=== PATIENT | female | born 1945 | race American Indian/Alaskan Native ===

== ENCOUNTER 2018-11-23 05:53 | Day surgery (SDC) | payer MEDICARE ==
[2018-11-23] MEDS ORDERED: SODIUM CHLORIDE 0.9% 500 ML 500 ML IV SCH (07:00)
[2018-11-23 07:54] LABS: Basophils # (Auto) 0.1 K/mm3 (0.0-0.1); Basophils % (Auto) 0.6 % (0.0-1.8); Eosinophils % (Auto) 0.5 % (0.0-4.3); Hematocrit 43.6 % (30.3-42.9); Hemoglobin 13.7 gm/dl (10.1-14.3); Lymphocytes # (Auto) 1.2 K/mm3 (1.2-5.4); Lymphocytes % (Auto) 12.2 % (13.4-35.0); Mean Corpuscular HGB Conc 31 % (30-34); Mean Corpuscular Volume 84 fl (79-97); Monocytes # (Auto) 0.7 K/mm3 (0.0-0.8); Monocytes % (Auto) 7.3 % (0.0-7.3); Platelet Count 252 K/mm3 (140-440); Red Blood Count 5.17 M/mm3 (3.65-5.03)
[2018-11-23 08:02] LABS: INR 1.04 (0.87-1.13)
[2018-11-23 08:19] LABS: BUN/Creatinine Ratio 25; Blood Urea Nitrogen 25 mg/dL (7-17); Calcium 9.1 mg/dL (8.4-10.2); Hemolysis Index 0
[2018-11-23] MEDS ORDERED: LIDOCAINE (2%) 20 MG/1 ML VIAL 20 ML MDV INFILTRATI ONE ×2 (09:02→09:58)
[2018-11-23] MEDS ORDERED: HEPARIN/NS 5000 UNIT/500ML 1,000 ML IR ONE (09:02)
[2018-11-23] MEDS ORDERED: MIDAZOLAM 2 MG/2 ML INJ ONE (09:25)
[2018-11-23] MEDS ORDERED: fentaNYL 100 MCG/2 ML INJ ONE (09:26)
[2018-11-23] MEDS: NITROGLYCERIN SYRINGE 3 ML ONE ×2 (09:50→09:57)
[2018-11-23] MEDS: HEPARIN 10,000 UNITS/10 ML VIAL ONE ×2 (09:50→09:57)
[2018-11-23] MEDS: VERAPAMIL 5 MG/2 ML INJ ONE ×2 (09:50→09:57)
--- NOTE | 2018-11-23 11:08 | Short Stay Summary ---
Short Stay Documentation Date of service: 11/23/18 - History H&P: obtained from office - Allergies and Medications Current Medications: Allergies Penicillins Allergy (Unverified 11/23/18 05:54) Hives Home Medications Medication Instructions Recorded Confirmed Last Taken Type Carvedilol [Coreg] 6.25 mg PO DAILY 11/23/18 11/23/18 11/22/18 History 1 tab Oxycodone HCl [oxyCODONE] 10 mg PO TID 11/23/18 11/23/18 11/23/18 08:00 History 1 tab Pregabalin 100 mg PO TID 11/23/18 11/23/18 11/23/18 History 1 tab Simvastatin 20 mg PO DAILY 11/23/18 11/23/18 11/23/18 History 1 tab Tiotropium [place] [Spiriva 4 gm INHALATION 11/23/18 11/22/18 History Respimat] 1 puff Active Medications Sodium Chloride (Nacl 0.9% 500 Ml) 500 mls @ 50 mls/hr IV DIRECT MIGUELITO Stop: 11/23/18 16:59 - Physical exam General appearance: no acute distress Integumentary: no rash HEENT: Atraumatic Breasts: deferred Heart: Regular rate Gastrointestinal: normal Female Genitourinary: deferred Rectal Exam: deferred Extremities: no ischemia Neurological: Normal gait - Brief post op/procedure progress note Date of procedure: 11/23/18 Pre-op diagnosis: Shortness of breath Post-op diagnosis: same Procedure: LHC, RHC and LV gram Anesthesia: MAC Findings: See report Surgeon: MIRA HERNANDEZ Estimated blood loss: none Pathology: none Condition: stable - Hospital course Hospital course: Uneventful - Disposition Condition at discharge: Good Disposition: DC-01 TO HOME OR SELFCARE Short Stay Discharge Plan Activity: no restrictions Weight Bearing Status: Weight Bear as Tolerated Diet: low fat, low cholesterol, low salt Special Instructions: restrict fluid intake to (50 ounces daily) Follow up with: ALFONZO JACOBSON MD [Primary Care Provider] - 7 Days
--- NOTE | 2018-11-23 12:11 | Cardiac Catherization Report ---
LEFT AND RIGHT HEART CATH INDICATION: Shortness of breath. ORDERING PHYSICIAN: Dr. Nasim Haider. PROCEDURES PERFORMED: 1. Selective left and right coronary angiography. 2. Left ventriculography. 3. Right heart catheterization with hemodynamic measurement and oxygen saturation run. DESCRIPTION OF PROCEDURE: After obtaining the consent, the patient was draped using sterile technique. A 2% lidocaine was injected into the right wrist. A 5-Cameroonian vascular sheath was inserted into the right radial artery. A 5-Cameroonian JL3.5 catheter was used to selectively engage the left coronary artery. A 5-Cameroonian JR4 catheter was used to selectively engage the right coronary artery. A 5-Cameroonian JR4 catheter was used to hand inject the left ventriculogram. Using ultrasound guidance and micropuncture needle, a 6-Cameroonian vascular sheath was inserted into the right femoral vein and a 6-[place]onian Webster-Noel catheter was used to measure right-sided hemodynamics and perform an oxygen saturation run. No complications occurred during the procedure. Hemostasis was achieved at the end of the procedure using manual pressure. SPECIMEN REMOVED: None. SEDATION ADMINISTERED: None. FINDINGS: HEMODYNAMICS: 1. The mean pulmonary capillary wedge pressure was 23 mmHg. 2. The pulmonary artery systolic pressure was 92 mmHg with a pulmonary artery diastolic pressure of 49 mmHg. 3. The mean pulmonary artery pressure was 66 mmHg. The transpulmonary gradient was calculated at 38 mmHg. The pulmonary vascular resistance was calculated at 8.9 Coyne units. 4. The right ventricular systolic pressure is 84 mmHg with the right ventricular end-diastolic pressure of 37 mmHg. 5. The mean right arterial pressure is 30 mmHg. 6. The Alexandra cardiac output was 4.57 L per minute with a cardiac index of 2.23 L per minute per m2. 7. The thermodilution cardiac output was 4.27 L per minute with a cardiac index of 2.08 L per minute per m2. 8. The aortic saturation was 86%, PA saturation 54%, RV saturation 53% and RA saturation 54%. CARDIAC STRUCTURES: The left ventricle is normal in size and systolic function. The left ventricular ejection fraction is estimated at 55% with normal wall motion. CORONARY ANATOMY: 1. This is a right dominant circulation. 2. The left main is angiographically normal. 3. LAD has minimal diffuse luminal irregularities. 4. The left circumflex artery has minimal diffuse luminal irregularities. 5. The right coronary artery has minimal diffuse luminal irregularities. IMPRESSION: 1. Severely elevated left and right-sided filling pressures with a mean pulmonary capillary wedge pressure of 23 mmHg, LVEDP of 28 mmHg and the mean right atrial pressure of 30 mmHg. 2. Severe pulmonary arterial hypertension with a mean pulmonary artery pressure of 66 mmHg and a transpulmonary gradient of 38 mmHg and a pulmonary vascular resistance of 8.9 Coyne units. 3. Borderline cardiac output with a cardiac index of 2.23 L per minute per m2 by Alexandra and 2.08 L per minute per m2 by thermodilution. 4. No evidence of an intracardiac shunt. 5. Normal left ventricular size and systolic function. 6. Mild nonobstructive diffuse coronary artery disease. RECOMMENDATION: The patient will be recommended for the initiation of p.o. diuresis with Bumex 1 mg p.o. daily. The patient also will be recommended for an outpatient sleep study as well as a CPAP titration session. The patient is to follow up with referring proprietary trader within a couple of weeks. [facility]# [id number] MEGAN/MONE
[2018-11-23 16:11] VITALS: BP 130/83
== END 2018-11-23 15:50 | disposition home or self-care (01) ==
LOC: CATHLABREC 05:53
PROVIDERS: ATTEND Internal Medicine
DX: I25.10 Atherosclerotic heart disease of native coronary artery without angina pectoris (principal); R06.02 Shortness of breath; I27.20 Pulmonary hypertension, unspecified; I10 Essential (primary) hypertension; J43.9 Emphysema, unspecified; Z88.0 Allergy status to penicillin; Z79.899 Other long term (current) drug therapy; Z80.1 Family history of malignant neoplasm of trachea, bronchus and lung
CPT/HCPCS: 36415; 80048; 85025; 85610; 85730; 93005; 93010; 93460; 99156; 99157; C1894; J1644; J2250; J3010; J7040; Q9967